=== PATIENT | female | born 1945 | race Hispanic/Latino ===

== ENCOUNTER 2017-03-12 12:53 | Emergency (ER) | payer OTHER ==
[2017-03-12] MEDS ORDERED: ONDANSETRON ODT 4 MG TAB ONE (13:25)
[2017-03-12 13:48] LABS: APPEARANCE,URINE Error (CLEAR); BILIRUBIN,URINE Negative (NEGATIVE); COLOR,URINE Yellow (YELLOW); GLUCOSE, URINE (UA) Negative (NEGATIVE); KETONES,URINE >=80 mg/dL (NEGATIVE); LEUKOCYTE ESTERASE ,URINE Large (NEGATIVE); NITRATE,URINE Negative (NEGATIVE); OCCULT BLOOD,URINE Moderate (NEGATIVE); PROTEIN,URINE Trace (NEGATIVE)
[2017-03-12 13:50] LABS: BACTERIA,URINE Rare /HPF (None Seen); SQUAMOUS EPITHELIAL CELL,UR Moderate /LPF (0-2); WBC,URINE 0-1 /HPF (0-1)
== END 2017-03-12 14:51 | disposition home or self-care (01) ==
LOC: EDH 12:53
DX: B34.9 Viral infection, unspecified (principal); B02.9 Zoster without complications; I10 Essential (primary) hypertension; E78.5 Hyperlipidemia, unspecified
CPT/HCPCS: 81001; 87088; 87804

== ENCOUNTER 2017-04-09 14:30 | Emergency (ER) | payer OTHER ==
[2017-04-09 15:54] LABS: BASOPHILS % (AUTO) 0.3 % (0.0-5.0); EOSINOPHILS % (AUTO) 0.1 % (0.0-8.0); HEMATOCRIT 39.5 % (36-48); LYMPHOCYTES % (AUTO) 8.5 % (21.0-51.0); MEAN CORPUSCULAR HEMOGLOBIN 31.8 pg (27.0-33.0); MEAN CORPUSCULAR HGB CONC 35.8 g/dL (32.0-36.0); MEAN CORPUSCULAR VOLUME 88.9 fL (79-99); NEUTROPHILS % (AUTO) 82.1 % (40.0-77.0); NUCLEATED RED BLOOD CELLS 0.2 % (0.0-0.19); PLATELET COUNT (AUTO) 232 K/uL (130-400); RED BLOOD CELL COUNT(AUTO) 4.45 MIL/uL (4.00-5.50); RED CELL DISTRIBUTION WIDTH 14.1 % (11.0-15.5); WHITE BLOOD COUNT (AUTO) 6.4 K/uL (4.8-10.8)
[2017-04-09 16:09] LABS: BILIRUBIN,URINE Negative (NEGATIVE); COLOR,URINE Yellow (YELLOW); GLUCOSE, URINE (UA) Negative (NEGATIVE); KETONES,URINE >=80 mg/dL (NEGATIVE); LEUKOCYTE ESTERASE ,URINE Large (NEGATIVE); NITRATE,URINE Negative (NEGATIVE); OCCULT BLOOD,URINE Small (NEGATIVE); PROTEIN,URINE Trace (NEGATIVE)
[2017-04-09 16:10] LABS: APPEARANCE,URINE SLIGHTLY CLOUDY (CLEAR)
[2017-04-09 16:11] LABS: RAPID GROUP A STREP NEGATIVE (NEGATIVE)
[2017-04-09 16:19] LABS: CREATININE 0.8 mg/dL (0.5-1.5); POTASSIUM 4.2 mmol/L (3.5-5.1)
[2017-04-09 16:24] LABS: ALBUMIN 3.4 g/dL (3.5-5.0); BILIRUBIN,TOTAL 0.3 mg/dL (0.2-1.0); TOTAL PROTEIN, SERUM 7.5 g/dL (6.0-8.3)
[2017-04-09 16:26] LABS: BACTERIA,URINE Few /HPF (None Seen)
[2017-04-09 16:28] LABS: MUCUS,URINE Rare LPF (None Seen); SQUAMOUS EPITHELIAL CELL,UR Rare /LPF (0-2)
[2017-04-09] MEDS ORDERED: ONDANSETRON ODT 4 MG TAB ONE (16:45)
[2017-04-09] MEDS ORDERED: IBUPROFEN 200 MG TAB ONE (16:45)
[2017-04-09] MEDS ORDERED: IBUPROFEN 400 MG TABLET ONE (16:45)
== END 2017-04-09 17:04 | disposition home or self-care (01) ==
LOC: EDH 14:30
DX: N39.0 Urinary tract infection, site not specified (principal); J40 Bronchitis, not specified as acute or chronic; I10 Essential (primary) hypertension; E78.5 Hyperlipidemia, unspecified
CPT/HCPCS: 36415; 71045; 80053; 81001; 85025; 87804; 87880

== ENCOUNTER 2019-09-13 14:54 | Emergency (ER) | payer OTHER, MEDICARE ==
[2019-09-13 15:52] LABS: HEMATOCRIT 40.1 % (36-48); MEAN CORPUSCULAR HEMOGLOBIN 30.3 pg (27.0-33.0); MEAN CORPUSCULAR HGB CONC 35.4 g/dL (32.0-36.0); MEAN CORPUSCULAR VOLUME 85.5 fL (79-99); MONOCYTES % (AUTO) 9.8 % (3.0-13.0); NEUTROPHILS % (AUTO) 81.8 % (40.0-77.0); PLATELET COUNT (AUTO) 228 K/uL (130-400); RED BLOOD CELL COUNT(AUTO) 4.69 MIL/uL (4.00-5.50); RED CELL DISTRIBUTION WIDTH 12.3 % (11.0-15.5); WHITE BLOOD COUNT (AUTO) 5.4 K/uL (4.8-10.8)
[2019-09-13] MEDS ORDERED: SODIUM CHLORIDE 0.9% 500ML 500 ML IV ONE (15:56)
[2019-09-13] MEDS ORDERED: ONDANSETRON HCL 4 MG/2 ML VIAL ONE (15:57)
[2019-09-13 15:58] LABS: APPEARANCE,URINE Cloudy (CLEAR); BILIRUBIN,URINE Negative (NEGATIVE); COLOR,URINE Yellow (YELLOW); GLUCOSE, URINE (UA) Negative (NEGATIVE); KETONES,URINE 15 mg/dL (NEGATIVE); LEUKOCYTE ESTERASE ,URINE Small (NEGATIVE); NITRATE,URINE Negative (NEGATIVE); OCCULT BLOOD,URINE Nonhemolyzed Trace (NEGATIVE); PROTEIN,URINE POS 2+ mg/dL (NEGATIVE)
[2019-09-13 16:02] LABS: ALBUMIN 3.9 g/dL (3.5-5.0); BILIRUBIN,TOTAL 0.3 mg/dL (0.2-1.0); POTASSIUM 3.1 mmol/L (3.5-5.1)
[2019-09-13 16:10] LABS: BACTERIA,URINE Few /HPF (None Seen); HYALINE CASTS, URINE 26-50 /LPF (0-1 /LPF)
[2019-09-13 16:11] LABS: MUCUS,URINE Rare LPF (None Seen); SQUAMOUS EPITHELIAL CELL,UR Few /HPF (0-2)
[2019-09-13] MEDS ORDERED: POTASSIUM BICARB/CIT AC 25 MEQ TABLET.EFF ONE (16:35)
== END 2019-09-13 18:31 | disposition home or self-care (01) ==
LOC: EDH 14:54
DX: U07.1 COVID-19 (principal); E87.1 Hypo-osmolality and hyponatremia; A08.4 Viral intestinal infection, unspecified; N39.0 Urinary tract infection, site not specified; E87.6 Hypokalemia; E78.5 Hyperlipidemia, unspecified; I10 Essential (primary) hypertension
CPT/HCPCS: 36415; 80053; 81001; 82550; 83690; 84484; 85025; 87088; 87880; 93005; 96361; 96374; 99284; J2405; J7040; U0003

== ENCOUNTER 2022-09-12 22:56 | Observation (INO) | payer OTHER, MEDICARE ==
[~2022-09-12] VITALS: Ht 149.9 cm; Wt 51.7 kg
[2022-09-12 23:28] LABS: APPEARANCE,URINE CLEAR (CLEAR); BILIRUBIN,URINE NEGATIVE (NEGATIVE); COLOR,URINE YELLOW (YELLOW); GLUCOSE, URINE (UA) 150 mg/dL (NEGATIVE); KETONES,URINE 60 mg/dL (NEGATIVE); LEUKOCYTE ESTERASE ,URINE 250 Leu/uL (NEGATIVE); NITRATE,URINE NEGATIVE (NEGATIVE); PH,URINE 6.5 (5.0-8.0); PROTEIN,URINE 30 mg/dL (NEGATIVE); UROBILINOGEN,URINE 0.2 mg/dL (0.2-1.0)
[2022-09-12] MEDS ORDERED: ONDANSETRON 4MG INJ IVP ONE (23:30)
[2022-09-12] MEDS ORDERED: 0.9%NACL 1000ML 1,000 ML IV ONE (23:30)
[2022-09-12 23:33] LABS: EOSINOPHILS % (AUTO) 0.2 % (0.0-8.0); HEMATOCRIT 35.2 % (36-48); LYMPHOCYTES % (AUTO) 11.3 % (21.0-51.0); MEAN CORPUSCULAR HEMOGLOBIN 30.1 pg (27.0-33.0); MEAN CORPUSCULAR HGB CONC 34.7 g/dL (32.0-36.0); MEAN CORPUSCULAR VOLUME 86.9 fL (79-99); MONOCYTES % (AUTO) 8.5 % (3.0-13.0); NEUTROPHILS % (AUTO) 79.6 % (40.0-77.0); PLATELET COUNT (AUTO) 258 K/uL (130-400); RED BLOOD CELL COUNT(AUTO) 4.05 MIL/uL (4.00-5.50); WHITE BLOOD COUNT (AUTO) 5.3 K/uL (4.8-10.8)
[2022-09-12 23:43] LABS: MUCUS,URINE RARE LPF (None Seen); SQUAMOUS EPITHELIAL CELL,UR RARE /HPF (0-2)
[2022-09-12 23:56] LABS: ALANINE AMINOTRANSFERASE 13 U/L (12-78); ALBUMIN 3.8 g/dL (3.5-5.0); ASPARTATE AMINOTRANSFERASE 22 U/L (10-37); CARBON DIOXIDE 24 mmol/L (21-32); CREATININE 0.8 mg/dL (0.5-1.5); GLOMERULAR FILTR. RATE CALC 76 mL/min (>90); GLUCOSE,RANDOM 183 mg/dL (70-105); POTASSIUM 3.6 mmol/L (3.5-5.1); SODIUM SERUM 121 mmol/L (136-145); TOTAL PROTEIN, SERUM 7.4 g/dL (6.0-8.3); UREA NITROGEN, BLOOD 9 mg/dL (7-18)
[2022-09-12 23:57] LABS: CHLORIDE 83 mmol/L (101-111); LIPASE < 50 U/L (114-286)
[2022-09-13] MEDS ORDERED: IOHEXOL 350 MG/ML 100ML INFUS..BTL IV ONE (00:28)
[2022-09-13] MEDS ORDERED: 0.9%NACL 1000ML 1,000 ML IV ONE (00:30)
[2022-09-13] MEDS ORDERED: HYDRALAZINE 20MG/ML VIAL IV PRN (01:30)
[2022-09-13] MEDS ORDERED: ONDANSETRON 4MG INJ IVP PRN (01:30)
[2022-09-13] MEDS ORDERED: 0.9%NACL 1000ML 1,000 ML IV SCH (01:30)
[2022-09-13] MEDS ORDERED: ACETAMINOPHEN 650 MG SUPPOSITORY RC PRN (01:30)
[2022-09-13] MEDS ORDERED: ACETAMINOPHEN 325 MG TAB PO PRN (01:30)
[2022-09-13] MEDS: CEFTRIAXONE 2GM VIAL IVPB SCH (06:54)
[2022-09-13 07:23] LABS: HEMATOCRIT 34.7 % (36-48); MEAN CORPUSCULAR HEMOGLOBIN 30.5 pg (27.0-33.0); MEAN CORPUSCULAR HGB CONC 35.2 g/dL (32.0-36.0); MEAN CORPUSCULAR VOLUME 86.8 fL (79-99); RED CELL DISTRIBUTION WIDTH 12.3 % (11.0-15.5); WHITE BLOOD COUNT (AUTO) 6.2 K/uL (4.8-10.8)
[2022-09-13 07:35] LABS: MAGNESIUM 1.4 mg/dL (1.80-2.40); PHOSPHORUS 1.9 mg/dL (2.5-4.9)
[2022-09-13] MEDS ORDERED: MAGNESIUM 2GM PREMIX 50ML 50 ML IV SCH (08:30)
[2022-09-13] MEDS: ENOXAPARIN SODIUM 30 MG/0.3 ML SQ SCH (09:08)
[2022-09-13] MEDS ORDERED: POTASSIUM CHLORIDE 10% ELIXIR 20 MEQ/15 ML UDCUP PO PRN (10:00)
[2022-09-13] MEDS ORDERED: MAGNESIUM 2GM PREMIX 50ML 50 ML IV PRN (10:00)
[2022-09-13] MEDS ORDERED: POTASSIUM CHLORIDE 20MEQ/100ML 100 ML IV PRN (10:00)
[2022-09-13] MEDS: LABETALOL 20MG SYG IV PRN ×2 (10:34→21:36)
[2022-09-13] MEDS ORDERED: VITA1CAP85 PO (11:45)
[2022-09-13] MEDS ORDERED: AEC81 PO (11:45)
[2022-09-13] MEDS ORDERED: SIMV10TA97 PO (11:45)
[2022-09-13] MEDS ORDERED: CHOL500051 PO (11:45)
[2022-09-13] MEDS ORDERED: ESOM40CA54 PO (11:45)
[2022-09-13] MEDS ORDERED: LISI1TAB51 PO (11:45)
[2022-09-13] MEDS ORDERED: FOLI1 PO (11:45)
[2022-09-13] MEDS ORDERED: ALPR1TAB2 PO (11:45)
[2022-09-13 12:55] VITALS: BP 180/89; PULSE 69; RESP 18
[2022-09-13 14:00] VITALS: O2SAT 99
[2022-09-13 16:00] VITALS: BP 154/71; PULSE 67; RESP 18
[2022-09-13 20:00] VITALS: BP 164/75; PULSE 70; RESP 16; O2SAT 98
[2022-09-13] MEDS ORDERED: ALPRAZOLAM 1 MG TAB PO SCH (21:00)
[2022-09-14] VITALS: BP 100/46; PULSE 52; RESP 16
[2022-09-14 02:02] LABS: BASOPHILS % (AUTO) 0.7 % (0.0-5.0); EOSINOPHILS % (AUTO) 2.1 % (0.0-8.0); HEMATOCRIT 30.2 % (36-48); LYMPHOCYTES % (AUTO) 28.3 % (21.0-51.0); MEAN CORPUSCULAR HEMOGLOBIN 30.6 pg (27.0-33.0); MEAN CORPUSCULAR HGB CONC 33.8 g/dL (32.0-36.0); MEAN CORPUSCULAR VOLUME 90.7 fL (79-99); MONOCYTES % (AUTO) 16.1 % (3.0-13.0); NEUTROPHILS % (AUTO) 52.3 % (40.0-77.0); PLATELET COUNT (AUTO) 221 K/uL (130-400); RED BLOOD CELL COUNT(AUTO) 3.33 MIL/uL (4.00-5.50); RED CELL DISTRIBUTION WIDTH 12.8 % (11.0-15.5); WHITE BLOOD COUNT (AUTO) 4.3 K/uL (4.8-10.8)
[2022-09-14 02:24] LABS: ALANINE AMINOTRANSFERASE 11 U/L (12-78); ALBUMIN 2.8 g/dL (3.5-5.0); ASPARTATE AMINOTRANSFERASE 15 U/L (10-37); BILIRUBIN,DIRECT 0.1 mg/dL (0.0-0.3); CARBON DIOXIDE 28 mmol/L (21-32); CHLORIDE 102 mmol/L (101-111); CREATININE 0.8 mg/dL (0.5-1.5); GLOMERULAR FILTR. RATE CALC 76 mL/min (>90); GLUCOSE,RANDOM 91 mg/dL (70-105); POTASSIUM 3.2 mmol/L (3.5-5.1); SODIUM SERUM 138 mmol/L (136-145); THYROID STIMULATING HORMONE 1.39 uIU/mL (0.36-3.74); TOTAL PROTEIN, SERUM 5.5 g/dL (6.0-8.3); UREA NITROGEN, BLOOD 9 mg/dL (7-18); URIC ACID 3.7 mg/dL (2.6-7.2)
[2022-09-14 02:26] LABS: LIPASE < 50 U/L (114-286)
[2022-09-14 04:00] VITALS: BP 118/56; PULSE 68; RESP 19
[2022-09-14] MEDS: CEFTRIAXONE 2GM VIAL IVPB SCH (05:05)
[2022-09-14] MEDS: KCL 20 MEQ ERTAB PO PRN ×3 (06:09→14:58)
[2022-09-14 06:36] LABS: APPEARANCE,URINE CLEAR (CLEAR); BILIRUBIN,URINE NEGATIVE (NEGATIVE); COLOR,URINE YELLOW (YELLOW); GLUCOSE, URINE (UA) NEGATIVE (NEGATIVE); KETONES,URINE 5 mg/dL (NEGATIVE); LEUKOCYTE ESTERASE ,URINE NEGATIVE Leu/uL (NEGATIVE); NITRATE,URINE NEGATIVE (NEGATIVE); OCCULT BLOOD,URINE NEGATIVE (NEGATIVE); PH,URINE 6.5 (5.0-8.0); PROTEIN,URINE 20 mg/dL (NEGATIVE); UROBILINOGEN,URINE 0.2 mg/dL (0.2-1.0)
[2022-09-14 06:39] LABS: CREATININE,URINE RANDOM 199 mg/dL (30-135); SODIUM,URINE RANDOM 73 mmol/l (40-220)
[2022-09-14 06:40] LABS: MUCUS,URINE RARE LPF (None Seen); SQUAMOUS EPITHELIAL CELL,UR RARE /HPF (0-2)
[2022-09-14 08:00] VITALS: BP 148/61; PULSE 65; RESP 16; O2SAT 100
[2022-09-14] MEDS: ENOXAPARIN SODIUM 30 MG/0.3 ML SQ SCH (09:01)
[2022-09-14 12:00] VITALS: BP 127/60; PULSE 66; RESP 15
[2022-09-14 16:00] VITALS: BP 130/62; PULSE 73; RESP 16
[2022-09-14] MEDS ORDERED: LISI20TA24 PO (16:29)
== END 2022-09-14 17:45 | disposition home or self-care (01) ==
LOC: EDH 22:56 → EDHIP 09-13 01:04 → 3BH 09-13 12:55
PROVIDERS: ADMIT Internal Medicine; ATTEND Internal Medicine
DX: E87.1 Hypo-osmolality and hyponatremia (principal); R11.2 Nausea with vomiting, unspecified; I10 Essential (primary) hypertension; E78.00 Pure hypercholesterolemia, unspecified; F32.A Depression, unspecified; E86.1 Hypovolemia; K52.9 Noninfective gastroenteritis and colitis, unspecified; T50.2X5A Adverse effect of carbonic-anhydrase inhibitors, benzothiadiazides and other diuretics, initial encounter; N30.00 Acute cystitis without hematuria; Z79.899 Other long term (current) drug therapy; Z98.890 Other specified postprocedural states
CPT/HCPCS: 96361 ×3; 96375 ×2; 99285; 84484; 80053 ×2; 83690 ×2; 85025 ×2; 87088; 81001 ×2; 36415 ×3; 93005; 96376; 96372 ×2; 96365; 96366 ×2; 96367; 83735 ×2; 84100 ×2; 84295 ×3; 85027; 83930; 74177; 76705; 84443; 82248; 82570; 84550; 84300; 82533; J2405; G0378 ×40; J3475; J7030; J0696 ×2; J1650 ×2; Q9967

== ENCOUNTER 2025-01-23 10:20 | Observation (INO) | payer OTHER, MEDICARE ==
[~2025-01-23] VITALS: Ht 149.9 cm; Wt 48.0 kg
[~2025-01-23 10:20] MED LIST: AEC81 PO; ALPR1TAB2 PO; CHOL500051 PO; ESOM40CA66 PO; FOLI1 PO; LISI20TA24 PO; SIMV10TA97 PO; VITA1CAP85 PO
--- NOTE | 2025-01-23 10:43 | ERN ---
General Chief Complaint: Syncope Stated Complaint: SYNCOPE Time Seen by MD: 10:24 Source: patient, family History of Present Illness Initial Comments PATIENT IS A 79-YEAR-OLD FEMALE COMING IN TO BE EVALUATED AFTER SHE HAD A FAINTING EPISODE YESTERDAY. PER FAMILY MEMBERS SHE WAS AMBULATING FELL DOWN IN THE KITCHEN. SHE HAS BEEN HAVING DIARRHEA PRIOR TO THIS. NO FEVER OR CHILLS. Allergies: Coded Allergies: No Known Allergies (Unverified Allergy, Unknown, 09/12/22) Home Meds Active Scripts Lisinopril (Lisinopril) 20 Mg Tablet, 20 MG PO DAILY for 30 Days, #30 TAB Prov:ZEKE SCHAFER VENUE COORDINATOR 09/14/22 Reported Medications Cholecalciferol (Vitamin D3) (Vitamin D3) 125 Mcg Capsule, 125 MCG PO DAILY, CAP 09/13/22 Vitamin B Complex (Vitamin B Complex) 1 Each Capsule, 1 EACH PO DAILY, CAP 09/13/22 Alprazolam (Xanax) 1 Mg Tablet, 1 MG PO TID PRN for ANXIETY/AGITATION, TAB 09/13/22 Folic Acid (Folvite) 1 Mg Tab, 1 MG PO DAILY, TAB 09/13/22 Simvastatin (Simvastatin) 10 Mg Tablet, 10 MG PO DAILY, TAB 09/13/22 Esomeprazole Magnesium (Esomeprazole Magnesium) 40 Mg Capsule.dr, 40 MG PO ACBKFST, CAP 09/13/22 Aspirin (ASPIRIN 81 MG ECTAB) 81 Mg Ectab, 81 MG PO DAILY, TAB.EC 09/13/22 Past Medical History Past Medical History: Depression, High Cholesterol, Hypertension, Other Medical History Other: HX OF GASTRITIS Past Surgical History: None Family History Family History: CAD, DM, HTN Social History Social History: Negative, Lives with family ROS Dictation CONSTITUTIONAL: NO CHILLS, NO FEVER, WEAKNESS, NO DIAPHORESIS, NO MALAISE. HEAD/FACE: NO SIGNS OF TRAUMA. EENT: NO EYE PAIN, NO BLURRED VISION, NO TEARING, NO DOUBLE VISION, NO EAR PAIN, NO EAR DISCHARGE, NO NOSE PAIN, NO NASAL CONGESTION, NO THROAT PAIN, NO THROAT SWELLING, NO MOUTH PAIN. RESPIRATORY: NO COUGH, NO ORTHOPNEA, NO SOB, NO STRIDOR, NO WHEEZING. CARDIOVASCULAR: NO CHEST PAIN, NO EDEMA, NO PALPITATIONS, NO SYNCOPE. GASTROINTESTINAL/ABDOMINAL: NO ABDOMINAL PAIN, NO CONSTIPATION, NO DIARRHEA, NO NAUSEA, NO VOMITING. GENITOURINARY: NO ABNORMAL DISCHARGE, NO DYSURIA, NO FREQUENT URINATION, NO HEMATURIA. NO COMPLAINTS OF PAIN IN THE GENITALS. MUSCULOSKELETAL: NO BACK PAIN, NO GOUT, NO JOINT PAIN, NO JOINT SWELLING, NO MUSCLE PAIN, NO MUSCLE STIFFNESS, NO NECK PAIN. INTEGUMENTARY: NO CHANGE IN COLOR, NO CHANGE IN HAIR/NAILS, NO DRYNESS, NO LESION, NO LUMPS, NO RASH. NEUROLOGICAL/PSYCH: NO ANXIETY, NOT DEPRESSED, NO EMOTIONAL PROBLEM, NO HEA DACHE, NO NUMBNESS, NO PRE-EXISTING DEFICIT, NO HISTORY OF SEIZURES, NO TREMORS, NO WEAKNESS. HEMATOLOGIC/LYMPHATIC: NOT ANEMIC, NO HISTORY OF BLOOD CLOTS, NO APPARENT BLEEDING, NO BRUISING, GLANDS NOT SWOLLEN. ALL SYSTEMS NEGATIVE, EXCEPT NOTED. Physical Exam Physical Exam Dictation VITAL SIGNS: REVIEWED. GENERAL APPEARANCE: ALERT, ORIENTED X3, NO ACUTE DISTRESS, OBESE. HEAD AND FACE: NON-TRAUMATIC. EYES: PERRL, PINK CONJUNCTIVAS, EYELID NO TRAUMA, ANTERIOR CHAMBER CLEAR. EARS: PINNAS INTACT AND NO SIGNS OF TRAUMA OR ERYTHEMA. EAR CANALS CLEAR AND NO DISCHARGE. TMS NO ERYTHEMA. NOSE: NO DISCHARGE, NO BLEEDING. OROPHARYNX: MOUTH NORMAL, TEETH NO CARIES, TONGUE PINK. PHARYNX CLEAR, NO ERYTHEMA. TONSILS NO EXUDATES, NO ABSCESSES NOTED. MUCOUS MEMBRANE MOIST. NECK: SUPPLE, NON-TENDER, NO THYROMEGALY, NO MASSES, NO JVD, NO BRUITS. BREAST: DEFERRED. CHEST: NO TENDERNESS, NO CREPITUS, NO PARADOXICAL MOVEMENT, NO RETRACTIONS. LUNGS: CLEAR, WELL-VENTILATED, SYMMETRIC, NO RALES, NO WHEEZING, NO RHONCHI, NO STRIDOR, GOOD BREATH SOUNDS BILATERALLY. HEART: REGULAR RATE, REGULAR RHYTHM, NO MURMUR, NO GALLOPS. VASCULAR: NO PERIPHERAL EDEMA. ABDOMEN: SOFT, POSITIVE BOWEL SOUNDS, NONDISTENDED, NO GUARDING, NONTENDER, NO REBOUND, NO MASSES NO HEPATOMEGALY, NO SPLENOMEGALY, NO MYLES'S SIGN, NO HERNIAS. RECTAL: DEFERRED. GENITAL: DEFERRED. NEUROLOGICAL: NORMAL SPEECH, GROSS MOTOR FUNCTION INTACT, GROSS SENSORY FUNCTION INTACT. MUSCULOSKELETAL: NECK NONTENDER, FULL RANGE OF MOTION, BACK NONTENDER, FULL RANGE OF MOTION. EXTREMITIES: NONTENDER, FULL RANGE OF MOTION. SKIN: COLOR PINK, DRY, NO TURGOR, NO RASH, NO LACERATIONS, NO ABRASIONS, NO CONTUSIONS. LYMPHATICS: DEFERRED. Results Laboratory and Microbiology Lab and Micro Result Laboratory Tests Test 01/23/25 10:41 01/23/25 11:28 White Blood Count 8.8 K/uL (4.8-10.8) Red Blood Count 4.29 MIL/uL (4.00-5.50) Hemoglobin 13.2 g/dL (12.0-16.0) Hematocrit 39.7 % (36-48) Mean Corpuscular Volume 92.5 fL (79-99) Mean Corpuscular Hemoglobin 30.8 pg (27.0-33.0) Mean Corpuscular Hemoglobin Concent 33.2 g/dL (32.0-36.0) Red Cell Distribution Width 12.4 % (11.0-15.5) Platelet Count 225 K/uL (130-400) Mean Platelet Volume 9.5 fL (7.5-10.5) Immature Granulocyte % (Auto) 0.6 % (0-1) Neutrophils (%) (Auto) 79.1 % (40.0-77.0) H Lymphocytes (%) (Auto) 10.9 % (21.0-51.0) L Monocytes (%) (Auto) 9.0 % (3.0-13.0) Eosinophils (%) (Auto) 0.3 % (0.0-8.0) Basophils (%) (Auto) 0.1 % (0.0-5.0) Neutrophils # (Auto) 7.0 K/uL (1.8-7.7) Lymphocytes # (Auto) 1.0 K/uL (1.0-4.8) Monocytes # (Auto) 0.8 K/uL (0.1-1.0) Eosinophils # (Auto) 0.03 K/uL (0.00-0.70) Basophils # (Auto) 0.01 K/uL (0.00-0.20) Absolute Immature Granulocyte (auto 0.05 K/uL (0-1) Nucleated Red Blood Cells 0.0 % (0.0-0.19) Sodium Level 131 mmol/L (136-145) L Potassium Level 3.5 mmol/L (3.5-5.1) Chloride Level 93 mmol/L (101-111) L Carbon Dioxide Level 29 mmol/L (21-32) Blood Urea Nitrogen 15 mg/dL (7-18) Creatinine 0.9 mg/dL (0.5-1.0) Glomerular Filtration Rate Calc 65 mL/min (>90) Random Glucose 134 mg/dL (70-105) H Total Calcium 9.1 mg/dL (8.5-10.1) Total Bilirubin 0.5 mg/dL (0.2-1.0) Aspartate Amino Transf (AST/SGOT) 19 U/L (10-37) Alanine Aminotransferase (ALT/SGPT) 20 U/L (12-78) Alkaline Phosphatase 68 U/L (50-136) Troponin I High Sensitivity 5 ng/L (4-50) Total Protein 7.6 g/dL (6.0-8.3) Albumin 3.1 g/dL (3.5-5.0) L Urine Color COLORLESS (YELLOW) Urine Appearance CLEAR (CLEAR) Urine pH 6.5 (5.0-8.0) Urine Specific [place] 1.004 (1.001-1.031) Urine Protein NEGATIVE mg/dL (NEGATIVE) Urine Glucose (UA) NEGATIVE mg/dL (NEGATIVE) Urine Ketones 5 mg/dL (NEGATIVE) H Urine Occult Blood NEGATIVE (NEGATIVE) Urine Nitrate NEGATIVE (NEGATIVE) Urine Bilirubin NEGATIVE mg/dL (NEGATIVE) Urine Urobilinogen 0.2 mg/dL (0.2-1.0) Urine Leukocyte Esterase 500 Eliud/uL (NEGATIVE) H Urine RBC None Seen /HPF (0-1) Urine WBC 11-25 /HPF (0-1) H Urine Squamous Epithelial Cells 10-25 /HPF (0-2) Urine Bacteria Moderate /HPF (None Seen) H Labs Reviewed?: Yes EKG/XRAY/US/CT/MRI EKG Comment 01/23/2025 TIME 10:38 A.M. VENTRICULAR RATE 75 SINUS RHYTHM [place] [address] WAVE ELEVATION OR DEPRESSION CT Scan Comment [facility] [address] [place] [address] IMAGING REPORT Signed PATIENT: ANTONIETA RAE MR#: [id number] : 1945 SEX: F AGE: 79 LOCATION: [facility] ORDER 28 STATUS: REG ER REPORT#: [id number] SERVICE REASON: FALL ORDERING PHYSICIAN: JAHAIRA COLEMAN MD PROCEDURE: HEAD WO - CT HEAD/BRAIN W/O CONTRAST EXAM: CT Head Without IV contrast. CLINICAL HISTORY: FALL TECHNIQUE: Axial computed tomography images of the head/brain without intravenous contrast. COMPARISON: None provided. FINDINGS: BRAIN: No evidence of acute hemorrhage. No mass lesion. No CT evidence for acute territorial infarct. No midline shift or extra-axial collections. VENTRICLES: No hydrocephalus. ORBITS: The orbits are unremarkable. SINUSES AND MASTOIDS: The paranasal sinuses and mastoid air cells are clear. BONES: No fracture. SOFT TISSUES: Unremarkable. IMPRESSION: No acute intracranial abnormality. /[place] DICTATED BY: IZA DOWD Jr., MD DATE: 01/23/25 1231 ELECTRONICALLY SIGNED BY: IZA DOWD Jr., MD DATE: 01/23/25 1231 [facility] MDM: DIFFERENTIAL DIAGNOSIS: SYNCOPE, UTI, RATIONALE: TESTS CONSIDERED AND ORDERED SECONDARY TO SHARED DECISION MAKING INCLUDE: LABS, ECG AND RADIOLOGY PREVIOUS OUTSIDE RECORDS REVIEWED: OLD ER VISITS. RISK OF COMPLICATION AND/OR MORBIDITY OR MORTALITY OF PATIENT MANAGEMENT: NONE MEDICATIONS-PER MEDICATION RECONCILIATION NEED FOR HOSPITALIZATION: PATIENT DOES MEET CRITERIA FOR HOSPITALIZATION. NEED FOR EMERGENCY MAJOR/MINOR SURGERY: NO THERE ARE NO SOCIAL CONCERNS WITH THIS PATIENT. PRESCRIPTION DRUG MANAGEMENT PRESCRIPTIONS WILL INCLUDE SYMPTOMATIC CARE PATIENT'S PRIOR EXTERNAL MEDICAL RECORDS FROM OTHER ER VISITS WERE REVIEWED BY ME INDICATED. PRIOR TESTING AND RESULTS FROM PREVIOUS VISITS WERE REVIEWED. PRIOR TESTS WERE TAKEN INTO ACCOUNT WITH MEDICAL DECISION MAKING AND RESOURCE UTILIZATION, INDEPENDENT HISTORIAN/HISTORIANS WERE USED TO OBTAIN COMPLETE MEDICAL HISTORY. I INDEPENDENTLY INTERPRETED THE TEST THAT WERE PERFORMED, RESULTS WERE REVIEWED BY ME AND CONSIDERED FINDINGS ON RADIOLOGY IF ORDERED. MEDICAL MANAGEMENT AND EXAMINATION INTERPRETATION DISCUSSIONS WERE HAD BY ME WITH OTHER QUALIFIED HEALTHCARE PROFESSIONALS INDICATED FOR THE PATIENT'S CARE. PATIENT WILL BE ADMITTED UNDER THE [facility] ED Course Orders Procedure Category Date Status Time Cbc With Differential LAB 01/23/25 Complete : Chest 1vw RAD 01/23/25 Resulted 10:28 12 Lead Ekg Tracing- EKG 01/23/25 Logged Technical 10:28 0.9%Nacl 1000ml (Ns PHA 01/23/25 Complete 1000ml) 10:30 Troponin I High LAB 01/23/25 Complete Sensitivity 10:28 Urinalysis Profile LAB 01/23/25 Complete 10:28 Comprehensive LAB 01/23/25 Complete Metabolic Panel 10:28 Ct Head/Brain W/O CT 01/23/25 Resulted Contrast 10:28 Culture Urine SHARRON 01/23/25 In Process 11:38 Ceftriaxone 1g Vial PHA 01/23/25 Transmitted (Rocephine 1g Inj) 13:00 Current Medications Medications (Trade) Dose Ordered Sig/Jeff Route PRN Reason Start Time Stop Time Status Last Admin Dose Admin Sodium Chloride 1,000 ml @ 0 mls/hr ONCE ONCE IV 01/23/25 10:30 01/23/25 10:31 DC 01/23/25 11:58 Vital Signs Date Time Temp Pulse Resp B/P (MAP) Pulse Ox O2 Delivery O2 Flow Rate FiO2 01/23/25 10:30 98.8 83 20 141/71 96 Room Air* 0 21 01/23/25 10:21 97.5 97 18 122/74 94 Room Air DX & DISP Disposition: Inpatient Decision to Admit Time: 12:54 Departure Impression: Primary Impression: UTI (urinary tract infection) Additional Impressions: Syncope, Dehydration Condition: Stable Referrals: STEPHENIE REICH MD (PCP) JAHAIRA COLEMAN MD Jan 23, 2025 10:43
[2025-01-23 10:47] LABS: IMMATURE GRANULOCYTE ABSOLUTE 0.05 K/uL (0-1); NUCLEATED RED BLOOD CELLS 0.0 % (0.0-0.19); PLATELET COUNT (AUTO) 225 K/uL (130-400); RED BLOOD CELL COUNT(AUTO) 4.29 MIL/uL (4.00-5.50); RED CELL DISTRIBUTION WIDTH 12.4 % (11.0-15.5); WHITE BLOOD COUNT (AUTO) 8.8 K/uL (4.8-10.8)
[2025-01-23 10:58] LABS: CREATININE 0.9 mg/dL (0.5-1.0); GLOMERULAR FILTR. RATE CALC 65.0 mL/min (>90); GLUCOSE,RANDOM 134.0 mg/dL (70-105); SODIUM SERUM 131.0 mmol/L (136-145); UREA NITROGEN, BLOOD 15.0 mg/dL (7-18)
[2025-01-23 11:02] LABS: ASPARTATE AMINOTRANSFERASE 19.0 U/L (10-37); TOTAL PROTEIN, SERUM 7.6 g/dL (6.0-8.3)
--- NOTE | 2025-01-23 11:32 | HMCIMG ---
EXAM: CT Head Without IV contrast. CLINICAL HISTORY: FALL TECHNIQUE: Axial computed tomography images of the head/brain without intravenous contrast. COMPARISON: None provided. FINDINGS: BRAIN: No evidence of acute hemorrhage. No mass lesion. No CT evidence for acute territorial infarct. No midline shift or extra-axial collections. VENTRICLES: No hydrocephalus. ORBITS: The orbits are unremarkable. SINUSES AND MASTOIDS: The paranasal sinuses and mastoid air cells are clear. BONES: No fracture. SOFT TISSUES: Unremarkable. IMPRESSION: No acute intracranial abnormality. /[place]
[2025-01-23 11:37] LABS: APPEARANCE,URINE CLEAR (CLEAR); GLUCOSE, URINE (UA) NEGATIVE (NEGATIVE); LEUKOCYTE ESTERASE ,URINE 500 Leu/uL (NEGATIVE); NITRATE,URINE NEGATIVE (NEGATIVE); OCCULT BLOOD,URINE NEGATIVE (NEGATIVE)
[2025-01-23 11:38] LABS: ADD UA MICROSCOPIC YES
--- NOTE | 2025-01-23 11:57 | HMCIMG ---
EXAM: CR Chest, 1 View. CLINICAL HISTORY: CP COMPARISON: None provided. FINDINGS: LUNGS: The lungs show no infiltrate or other acute finding.Mild bibasilar airspace disease is presumed to reflect atelectasis. PLEURAL SPACES: No evidence of pleural effusion or pneumothorax. MEDIASTINUM: Cardiac size and mediastinal contours within normal limits. BONES: No acute osseous abnormality. IMPRESSION: No acute cardiopulmonary pathology is evident. /[place]
[2025-01-23] MEDS: 0.9%NACL 1000ML 1,000 ML IV ONE (11:58)
--- NOTE | 2025-01-23 13:32 | EKG ---
[facility] Test Date: 2025-01-23 Test Time: 10:38:57 Pat Name: ANTONIETA RAE Department: ED Room: 315 Gender: F Dip Painter: [id number] : 1945 Requested By: JAHAIRA COLEMAN Order Number: [id number] Reading MD: Edie Diaz Measurements Intervals Clifford Rate: 75 P: 55 PA: 141 QRS: 62 QRSD: 81 T: 31 QT: 355 QTc: 397 Interpretive Statements Sinus rhythm Probable left atrial enlargement Compared to ECG 09/12/2022 23:15:35 No significant changes Electronically Signed On 01-24-2025 13:11:51 PERSONNEL SUPERVISOR by Edie Diaz Please click the below link to view image of tracing.
--- NOTE | 2025-01-23 14:54 | HP ---
[facility] HISTORY & PHYSICAL Date Patient Seen: Jan 23, 2025 Time of Visit: 14:53 Supervising Physician: Dr. Connor Primary Care Physician: Dr. Ike Zamudio Outpatient Specialists: [ ] Inpatient Consults: [ ] PROBLEM LIST: Syncopal episode Acute complicated cystitis Hypertension Anxiety Depression HPI: Patient is a 71-year-old female with a past medical history significant for hypertension and depression who presented to the emergency department and was admitted for a syncopal episode at home, patient states she did not hit her head at the time of the fall. Patient was found to have acute complicated cystitis on this admission, no other acute findings found on imaging studies, head CT negative. Patient was started on Rocephin 2 g daily, we have ordered an echocardiogram and carotid Doppler for syncopal workup, current treatment plan and expectations expressed to family and patient, all in agreement. We will follow up with the patient tomorrow regarding results and possible discharge if everything returns negative with outpatient antibiotic treatment for UTI. Plan Start Rocephin 2 g daily Pending echocardiogram Pending carotid Doppler Fall precautions PAST MEDICAL HX: see above PAST SURGICAL HX: noncontributory SOCIAL HISTORY: No tobacco, ETOH, or illicit drug use Coded Allergies: No Known Allergies (Unverified Allergy, Unknown, 09/12/22) REVIEW OF SYSTEMS: 12 point ROS reviewed with patient. Pertinent positives mentioned above. Otherwise negative. PHYSICAL EXAM: GENERAL: alert, weak, awake oriented x 3 HEENT: EOMI, Sclera non icteric, moist mucosa NECK: Supple, no JVD, trachea midline LUNGS: Clear breath sounds bilaterally. No wheezes HEART: Regular rate and rhythm. Normal S1 and S2, without murmurs ABD: Abdomen soft, nontender. Bowel sounds present EXT: No clubbing cyanosis or edema NEURO: Alert and oriented to person, follows commands Vital Signs (last 8hr) Date Time Temp Pulse Resp B/P (MAP) Pulse Ox O2 Delivery O2 Flow Rate FiO2 01/23/25 10:30 98.8 83 20 141/71 96 Room Air* 0 21 01/23/25 10:21 97.5 97 18 122/74 94 Room Air LABS: Hematology Labs: Test 01/23/25 10:41 Range/Units White Blood Count 8.8 4.8-10.8 K/uL Red Blood Count 4.29 4.00-5.50 MIL/uL Hemoglobin 13.2 12.0-16.0 g/dL Hematocrit 39.7 36-48 % Mean Corpuscular Volume 92.5 79-99 fL Mean Corpuscular Hemoglobin 30.8 27.0-33.0 pg Mean Corpuscular Hemoglobin Concent 33.2 32.0-36.0 g/dL Red Cell Distribution Width 12.4 11.0-15.5 % Platelet Count 225 130-400 K/uL Mean Platelet Volume 9.5 7.5-10.5 fL Immature Granulocyte % (Auto) 0.6 0-1 % Neutrophils (%) (Auto) 79.1 H 40.0-77.0 % Lymphocytes (%) (Auto) 10.9 L 21.0-51.0 % Monocytes (%) (Auto) 9.0 3.0-13.0 % Eosinophils (%) (Auto) 0.3 0.0-8.0 % Basophils (%) (Auto) 0.1 0.0-5.0 % Neutrophils # (Auto) 7.0 1.8-7.7 K/uL Lymphocytes # (Auto) 1.0 1.0-4.8 K/uL Monocytes # (Auto) 0.8 0.1-1.0 K/uL Eosinophils # (Auto) 0.03 0.00-0.70 K/uL Basophils # (Auto) 0.01 0.00-0.20 K/uL Absolute Immature Granulocyte (auto 0.05 0-1 K/uL Nucleated Red Blood Cells 0.0 0.0-0.19 % Chemistry Labs: Test 01/23/25 10:41 Range/Units Sodium Level 131 L 136-145 mmol/L Potassium Level 3.5 3.5-5.1 mmol/L Chloride Level 93 L 101-111 mmol/L Carbon Dioxide Level 29 21-32 mmol/L Blood Urea Nitrogen 15 7-18 mg/dL Creatinine 0.9 0.5-1.0 mg/dL Glomerular Filtration Rate Calc 65 >90 mL/min Random Glucose 134 H 70-105 mg/dL Total Calcium 9.1 8.5-10.1 mg/dL Total Bilirubin 0.5 0.2-1.0 mg/dL Aspartate Amino Transf (AST/SGOT) 19 10-37 U/L Alanine Aminotransferase (ALT/SGPT) 20 12-78 U/L Alkaline Phosphatase 68 50-136 U/L Troponin I High Sensitivity 5 4-50 ng/L Total Protein 7.6 6.0-8.3 g/dL Albumin 3.1 L 3.5-5.0 g/dL DIAGNOSTICS / RADIOLOGY RESULTS: [ ] PLAN NEURO: Minimize central acting medications as possible. Maintain fall precautions, adequate lighting during the day PULMONARY: Supplemental 02 as needed. Maintain aspiration precautions at all times CARDIOVASCULAR: Follow hemodynamics. Vital signs per facility protocol GI & NUTRITION: Continue with nutritional support. Continue stool softeners and laxatives as needed. KIDNEYS & ELECTROLYTES: Strict monitoring of intake, output and overall fluid balance. Avoid nephrotoxic medications to the extent possible. Medications to be dosed according to renal function. Monitor electrolytes and replace as needed ENDOCRINE: Maintain blood glucose between 100-180 at all times. Hypoglycemia protocol in place INFECTIOUS DISEASE: Trend temperature, WBC and procalcitonin level Follow cultures, deescalate antibiotics as soon as possible. Panculture if new onset fever ONCOLOGY/HEMATOLOGY/COAGULATION: Monitor for s/s of bleeding Monitor hemoglobin, coagulation studies as needed SKIN: Pressure ulcer prevention per facility protocol Specialty mattress ORTHO/REHAB: Continue PT/OT Prophylaxis: Continue GI and DVT prophylaxis Code Status: Full Resuscitation Disposition: TBD Other: Total patient care time exceeds 35 minutes excluding all procedures. WALESKA ROMERO PAC Jan 23, 2025 14:54
[2025-01-23] MEDS ORDERED: LACTULOSE 20 GM/30 ML UDCUP PO PRN (15:00)
[2025-01-23] MEDS ORDERED: LOPERAMIDE HCL 2 MG CAP PO PRN (15:00)
[2025-01-23] MEDS ORDERED: BENZOCAINE/MENTH/CETYLPYRD CL 1 EACH LOZENGE MM PRN (15:00)
[2025-01-23] MEDS ORDERED: MAG/ALUM/SIMETH 30 ML UDCUP PO PRN (15:00)
[2025-01-23] MEDS ORDERED: NITROGLYCERIN 0.4 MG SL TAB SL PRN (15:00)
[2025-01-23] MEDS ORDERED: ARTIFICAL TEARS SOL 15 ML OP PRN (15:00)
[2025-01-23] MEDS ORDERED: guaiFENesin-DM 200/20MG 10ML PO PRN (15:00)
[2025-01-23] MEDS ORDERED: LIDOCAINE HCL 2% VISCOUS 30 ML, MAG/ALUM/SIMETH 30ML 30 ML, DICYCLOMINE HCL 20 MG PO PRN (15:00)
--- NOTE | 2025-01-23 16:02 | NUR ---
ATTEMPTED TO CALL FOR REPORT AT THIS TIME; NURSE IS CURRENTLY BUSY. PENDING CALL BACK.
[2025-01-23] MEDS ORDERED: SIMV10TA97 PO (16:13)
[2025-01-23] MEDS ORDERED: OLME-30 PO (16:13)
--- NOTE | 2025-01-23 16:43 | NUR ---
GAVE REPORT TO HERLINDA SHEPHERD AT THIS TIME.
[2025-01-23 17:15] VITALS: BP 144/70; PULSE 87; RESP 16; TEMP 98.7
[2025-01-23 17:40] VITALS: O2SAT 98
[2025-01-23 20:00] VITALS: BP 149/77; PULSE 75; PULSE 99; RESP 16; TEMP 99.2
[2025-01-23 21:00] VITALS: O2SAT 98
[2025-01-23] MEDS ORDERED: PoTASSium chl 10% ELIXIR 20MEQ 20 MEQ/15 ML UDCUP PO PRN (21:00)
[2025-01-23] MEDS ORDERED: FAMOTIDINE 20MG VIAL IV SCH (21:00)
[2025-01-23] MEDS ORDERED: MAGNESIUM 2GM PREMIX 50ML 50 ML IV PRN (21:00)
[2025-01-23] MEDS: FAMOTIDINE 20MG TAB PO SCH (21:15)
[2025-01-23] MEDS: PoTASSium chloRIDE 20MEQ ER 20 MEQ ERTAB PO PRN (21:16)
[2025-01-23 22:00] VITALS: BP 141/63; PULSE 69; RESP 18; TEMP 98.3
[2025-01-24 04:00] VITALS: BP 127/71; PULSE 75; RESP 16; TEMP 98.2
[2025-01-24 08:00] VITALS: BP 137/69; PULSE 76; RESP 16; TEMP 98.1
[2025-01-24 08:15] VITALS: O2SAT 93
[2025-01-24 08:56] LABS: IMMATURE GRANULOCYTE ABSOLUTE 0.05 K/uL (0-1); NUCLEATED RED BLOOD CELLS 0.0 % (0.0-0.19); PLATELET COUNT (AUTO) 225 K/uL (130-400); RED BLOOD CELL COUNT(AUTO) 3.72 MIL/uL (4.00-5.50); RED CELL DISTRIBUTION WIDTH 12.5 % (11.0-15.5); WHITE BLOOD COUNT (AUTO) 6.2 K/uL (4.8-10.8)
--- NOTE | 2025-01-24 08:59 | PN ---
[facility] PROGRESS NOTE Date Patient Seen: Jan 24, 2025 Time of Visit: 08:59 Supervising Physician: Dr. Connor Primary Care Physician: Dr. Ike Zamudio Outpatient Specialists: [ ] Inpatient Consults: [ ] PROBLEM LIST: Syncopal episode Acute complicated cystitis Hypertension Anxiety Depression INTERVAL HISTORY: Patient evaluated at bedside today, white count is within normal limits and hemoglobin is stable, patient is on remit at this time, Her daughter is at bedside today for the evaluation, Patient's carotid dopplers have returned ne gative for any acute findings or significant stenosis, She has received her echocardiogram today, however, we are currently pending the final report, She continues on her Rocephin 2 grams daily at this time, Advise that if her echocardiogram is negative, she'll be free to return home with assistance, to complete her antibiotic course at home, recommending follow-up with PCP upon discharge, Patient expressed understanding, daughter at bedside stated that she will arrange transportation for tomorrow as she will be at work, REVIEW OF SYSTEMS: 12 point ROS reviewed with patient. Pertinent positives mentioned above. Otherwise negative. PHYSICAL EXAM: GENERAL: alert, weak, awake oriented x 3 HEENT: EOMI, Sclera non icteric, moist mucosa NECK: Supple, no JVD, trachea midline LUNGS: Clear breath sounds bilaterally. No wheezes HEART: Regular rate and rhythm. Normal S1 and S2, without murmurs ABD: Abdomen soft, nontender. Bowel sounds present EXT: No clubbing cyanosis or edema NEURO: Alert and oriented to person, follows commands Vital Signs (last 8hr) Date Time Temp Pulse Resp B/P (MAP) Pulse Ox O2 Delivery O2 Flow Rate FiO2 01/24/25 08:00 98.1 76 16 137/69 98 Room Air 01/24/25 04:00 98.2 75 16 127/71 94 Room Air LABS: Hematology Labs: Test 01/24/25 08:42 Range/Units White Blood Count 6.2 # 4.8-10.8 K/uL Red Blood Count 3.72 L 4.00-5.50 MIL/uL Hemoglobin 11.6 L 12.0-16.0 g/dL Hematocrit 34.4 L 36-48 % Mean Corpuscular Volume 92.5 79-99 fL Mean Corpuscular Hemoglobin 31.2 27.0-33.0 pg Mean Corpuscular Hemoglobin Concent 33.7 32.0-36.0 g/dL Red Cell Distribution Width 12.5 11.0-15.5 % Platelet Count 225 130-400 K/uL Mean Platelet Volume 9.8 7.5-10.5 fL Immature Granulocyte % (Auto) 0.8 0-1 % Neutrophils (%) (Auto) 82.7 H 40.0-77.0 % Lymphocytes (%) (Auto) 6.6 L 21.0-51.0 % Monocytes (%) (Auto) 9.5 3.0-13.0 % Eosinophils (%) (Auto) 0.2 0.0-8.0 % Basophils (%) (Auto) 0.2 0.0-5.0 % Neutrophils # (Auto) 5.1 1.8-7.7 K/uL Lymphocytes # (Auto) 0.4 L 1.0-4.8 K/uL Monocytes # (Auto) 0.6 0.1-1.0 K/uL Eosinophils # (Auto) 0.01 0.00-0.70 K/uL Basophils # (Auto) 0.01 0.00-0.20 K/uL Absolute Immature Granulocyte (auto 0.05 0-1 K/uL Nucleated Red Blood Cells 0.0 0.0-0.19 % Chemistry Labs: Test 01/23/25 10:41 Range/Units Sodium Level 131 L 136-145 mmol/L Potassium Level 3.5 3.5-5.1 mmol/L Chloride Level 93 L 101-111 mmol/L Carbon Dioxide Level 29 21-32 mmol/L Blood Urea Nitrogen 15 7-18 mg/dL Creatinine 0.9 0.5-1.0 mg/dL Glomerular Filtration Rate Calc 65 >90 mL/min Random Glucose 134 H 70-105 mg/dL Total Calcium 9.1 8.5-10.1 mg/dL Total Bilirubin 0.5 0.2-1.0 mg/dL Aspartate Amino Transf (AST/SGOT) 19 10-37 U/L Alanine Aminotransferase (ALT/SGPT) 20 12-78 U/L Alkaline Phosphatase 68 50-136 U/L Troponin I High Sensitivity 5 4-50 ng/L Total Protein 7.6 6.0-8.3 g/dL Albumin 3.1 L 3.5-5.0 g/dL DIAGNOSTICS / RADIOLOGY RESULTS: [ ] PLAN NEURO: Minimize central acting medications as possible. Maintain fall precautions, adequate lighting during the day PULMONARY: Supplemental 02 as needed. Maintain aspiration precautions at all times CARDIOVASCULAR: Follow hemodynamics. Vital signs per facility protocol GI & NUTRITION: Continue with nutritional support. Continue stool softeners and laxatives as needed. KIDNEYS & ELECTROLYTES: Strict monitoring of intake, output and overall fluid balance. Avoid nephrotoxic medications to the extent possible. Medications to be dosed according to renal function. Monitor electrolytes and replace as needed ENDOCRINE: Maintain blood glucose between 100-180 at all times. Hypoglycemia protocol in place INFECTIOUS DISEASE: Trend temperature, WBC and procalcitonin level Follow cultures, deescalate antibiotics as soon as possible. Panculture if new onset fever ONCOLOGY/HEMATOLOGY/COAGULATION: Monitor for s/s of bleeding Monitor hemoglobin, coagulation studies as needed SKIN: Pressure ulcer prevention per facility protocol Specialty mattress ORTHO/REHAB: Continue PT/OT Prophylaxis: Continue GI and DVT prophylaxis Code Status: Full Resuscitation Disposition: TBD Other: Total patient care time exceeds 35 minutes excluding all procedures. WALESKA RMOERO PAC Jan 24, 2025 08:59
[2025-01-24 09:09] LABS: CREATININE 0.7 mg/dL (0.5-1.0); GLOMERULAR FILTR. RATE CALC 88.0 mL/min (>90); GLUCOSE,RANDOM 150.0 mg/dL (70-105); SODIUM SERUM 133.0 mmol/L (136-145); UREA NITROGEN, BLOOD 11.0 mg/dL (7-18)
--- NOTE | 2025-01-24 11:47 | HMCIMG ---
EXAMINATION: DUPLEX ULTRASOUND EXAMINATION OF THE BILATERAL CAROTID AND VERTEBRAL ARTERIES. CLINICAL HISTORY: Syncope. COMPARISON: None provided. TECHNIQUE: Real-time ultrasound scan of the bilateral carotid and vertebral arteries, 2-D grayscale, with color Doppler flow and spectral waveform analysis. FINDINGS: Color and spectral Doppler interrogation of the carotid vessels on the right demonstrate peak systolic velocities as follows: CCA (Proximal and distal): 82 and 81 cm/s respectively. Bulb: 81 cm/s. ECA: 79 cm/s. ICA (Proximal, mid, and distal): 116, 116, and 102 cm/s respectively. Vertebral artery demonstrates antegrade flow: 54 cm/s. Right ICA/CCA ratio: 1.4 Peak systolic velocities on the left are as follows: CCA (Proximal and distal): 99 and 78 cm/s respectively. Bulb: 54 cm/s. ECA: 66 cm/s. ICA (Proximal, mid, and distal): 133, 118, and 107 cm/s respectively. Vertebral artery demonstrates antegrade flow: 47 cm/s. Left ICA/CCA ratio: 1.7 Both the common carotid arteries and their branches reveal mild intimal thickening. IMPRESSION: Mild intimal thickening in the bilateral carotid arteries and their branches. There is no significant stenosis or flow limiting lesions. /[place]
[2025-01-24 12:00] VITALS: BP 126/65; PULSE 80; RESP 16; TEMP 98
--- NOTE | 2025-01-24 13:15 | HMCSR ---
APPROVED REPORT EXAM: Two-dimensional and M-mode echocardiogram with Doppler and color Doppler. INDICATION ICD: Syncope 2D Dimensions RVDd 2.6 cm LVEF(%) 45.2 (>50%) LVED Vol(simp.) 47.2 mL IVSd 0.7 (0.7-1.1cm) FS(%) 22 % LVES Vol(simp.) 16.6 mL LVDd 3.3 (3.8-5.6cm) LA (2D) 2.4 (1.6-4.0cm) LVEF(%, simp.) 65 % PWd 0.8 (0.7-1.1cm) Ao Root(2D) 2.7 (2.0-3.7cm) LA ESV INDEX (BP) 13.07 mL/m2 LVDs 2.6 (2.5-4.0cm) LVOT diam 1.9 (1.8-2.4cm) IVC diam 1.1 cm M-Mode Dimensions EPSS 0.7 cm LA (MM) 3.1 (1.6-4.0cm) Ao Root(MM) 2.7 (2.0-3.7cm) Aortic Valve AoV Vmax 1.6 m/s Ao Peak GR 10.7 mmHg LVOT Vmax 1.2 m/s AoV VTI 0.4 m Ao Mean GR 5.7 mmHg LVOT VTI 0.25 m MARINE (VMAX) 2.05 cm2 Al P1/2T 330 ms MARINE (VTI) 2.0 cm2 Mitral Valve P 1/2 T 75 ms MVA (PHT) 2.9 cm2 TDI Medial E' Peak V 10.86 cm/s Lateral E' Peak V 9.84 cm/s Pulmonary Valve PV Vmax 1.2 m/s PV VTI 0.29 m PV Mean GR 3.1 mmHg PV Peak GR 5.5 mmHg Tricuspid Valve TR Vmax 2.6 m/s RVSP 26.6 mmHg TR Peak GR 26.6 mmHg Left Ventricle The left ventricle is normal size. There is normal left ventricular wall thickness. LVEF is 60-65%. The left ventricular diastolic function is normal. Right Ventricle The right ventricle is normal size. The right ventricular systolic function is normal. Atria The left atrium size is normal. The right atrium size is normal. Aortic Valve The aortic valve is normal in structure. Mild aortic regurgitation. There is no aortic valvular stenosis. Mitral Valve The mitral valve is normal in structure. Mitral regurgitation is trace. There is no mitral valve stenosis. Tricuspid Valve The tricuspid valve is normal in structure. There is mild tricuspid valve regurgitation noted. Pulmonic Valve The pulmonary valve is normal in structure. There is trace pulmonic valvular regurgitation. Great Vessels The aortic root is normal in size. The IVC is normal in size and collapses >50% with inspiration. Pericardium There is no pericardial effusion. Conclusion The left ventricle is normal size. LVEF is 60-65%. The left ventricular diastolic function is normal. The right ventricle is normal size. The right ventricular systolic function is normal. The left atrium size is normal. The right atrium size is normal. Mild aortic regurgitation. There is mild tricuspid valve regurgitation noted. There is no pericardial effusion.
[2025-01-24 16:00] VITALS: BP 137/72; PULSE 74; RESP 16; TEMP 98.2
[2025-01-24 20:00] VITALS: BP 145/68; PULSE 71; RESP 20; TEMP 97.8
[2025-01-25] VITALS: BP 124/68; PULSE 65; RESP 20; TEMP 97.8
[2025-01-25 04:00] VITALS: BP 123/65; PULSE 69; RESP 20; TEMP 97.9
[2025-01-25 05:56] LABS: NUCLEATED RED BLOOD CELLS 0.0 % (0.0-0.19); PLATELET COUNT (AUTO) 252.0 K/uL (130-400); RED BLOOD CELL COUNT(AUTO) 3.66 MIL/uL (4.00-5.50); RED CELL DISTRIBUTION WIDTH 12.3 % (11.0-15.5); WHITE BLOOD COUNT (AUTO) 4.3 K/uL (4.8-10.8)
[2025-01-25 06:03] LABS: CREATININE 0.8 mg/dL (0.5-1.0); GLOMERULAR FILTR. RATE CALC 75.0 mL/min (>90); GLUCOSE,RANDOM 94.0 mg/dL (70-105); SODIUM SERUM 138.0 mmol/L (136-145); UREA NITROGEN, BLOOD 9.0 mg/dL (7-18)
[2025-01-25 08:00] VITALS: O2SAT 96
--- NOTE | 2025-01-25 09:10 | DS ---
[facility] DISCHARGE SUMMARY Date Patient Seen: Jan 25, 2025 Time of Visit: 09:10 Supervising Physician: Dr. Connor Primary Care Physician: Dr. Ike Zamudio Outpatient Specialists: [ ] Inpatient Consults: [ ] HOSPITAL COURSE: HPI (per admitting provider) Patient is a 71-year-old female with a past medical history significant for hypertension and depression who presented to the emergency department and was admitted for a syncopal episode at home, patient states she did not hit her head at the time of the fall. Patient was found to have acute complicated cystitis on this admission, no other acute findings found on imaging studies, head CT negative. Patient was started on Rocephin 2 g daily, we have ordered an echocardiogram and carotid Doppler for syncopal workup, current treatment plan and expectations expressed to family and patient, all in agreement. We will follow up with the patient tomorrow regarding results and possible discharge if everything returns negative with outpatient antibiotic treatment for UTI. The patient was treated for the following problems: Patient was admitted for a syncopal episode. Daughter at bedside states that she fell and did not hit her head, however, on admission. CT scan was negative for any acute findings. She did have a carotid doppler and echocardiogram performed on this admission, both negative for any acute findings. At this time, she is being treated for cystitis with receptin 2 grams daily, casas-susceptible. She is being discharged today with improved encephalopathy and a prescription for Augmentin for seven days and recommendations to follow up with PCP to ensure resolution of her symptoms. 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 PCP notified of patients admission, hospital course and discharge. PHYSICAL EXAM: GENERAL: alert, weak, awake oriented x 3 HEENT: EOMI, Sclera non icteric, moist mucosa NECK: Supple, no JVD, trachea midline LUNGS: Clear breath sounds bilaterally. No wheezes HEART: Regular rate and rhythm. Normal S1 and S2, without murmurs ABD: Abdomen soft, nontender. Bowel sounds present EXT: No clubbing cyanosis or edema NEURO: Alert and oriented to person, follows commands FOLLOW-UP: Follow-up with PCP in 2-3 days RECOMMENDATIONS: See Discharge Instructions This case was seen and discussed with my supervising physician. More than 30 minutes spent on discharge process, including evaluation of the patient, discussion with nursing staff, medication reconciliation and follow-up appointments WALESKA ROMERO PAC Jan 25, 2025 09:10
[2025-01-25] MEDS ORDERED: AMOX-426 PO (09:14)
[2025-01-25 10:00] VITALS: BP 133/59; PULSE 70; RESP 20; TEMP 98.6
--- NOTE | 2025-01-25 12:50 | NUR ---
DISCHARGE DISCHARGE ORDERS OBTAINED FOR PATIENT TO BE DISCHARGED HOME. DISCHARGE INSTRUCTIONS AND DOCUMENTATION GIVEN TO PATIENT AND DAUGHTER. VOICED UNDERSTANDING. IV DISCONTINUED BY [employer] JO. CATHETER INTACT. NO S/S OF INFECTION NOTED TO SITE. PATIENT TOLERATED WELL. BANDS REMOVED PRIOR TO DISCHARGE. PATIENT TAKEN VIA WHEELCHAIR. NO S/S OF DISTRESS NOTED.
== END 2025-01-25 12:50 | disposition home or self-care (01) ==
LOC: EDH 10:20 → EDHIP 14:50 → 3CH 17:10
PROVIDERS: ADMIT Internal Medicine Critical Care Medicine; ATTEND Internal Medicine Critical Care Medicine
DX: R55 Syncope and collapse (principal); G93.41 Metabolic encephalopathy; N30.00 Acute cystitis without hematuria; I10 Essential (primary) hypertension; F41.9 Anxiety disorder, unspecified; F32.A Depression, unspecified; E86.0 Dehydration; E78.00 Pure hypercholesterolemia, unspecified; K29.70 Gastritis, unspecified, without bleeding; Z79.899 Other long term (current) drug therapy; Z98.890 Other specified postprocedural states
CPT/HCPCS: 96365; 99285; 84484; 80053; 85025 ×2; 87086; 81001; 36415 ×3; 71045; 70450; 93880; 93005; 96366; 80048 ×2; 93306; 97161; 97116; 85027; G0378 ×46; J0696 ×2